=== PATIENT | female | born 1945 | race Caucasian/White ===

== ENCOUNTER 2019-07-11 08:56 | Emergency (ER) | payer MEDICARE ==
[~2019-07-11] VITALS: Ht 160 cm; Wt 50.3 kg
--- NOTE | 2019-07-11 09:41 | NUR ---
NAUSEA , LOWER ABD CRAMPING X 12 HOURS. SEEN AT FIRST (UA DIPSTICK +NITRITE) -INFLUENZA A/B PLACED ON NIBP/POX TO OBTAIN UA/PIV FROM WHICH I WILL DRAW LAB/ THEN IVF
[2019-07-11] MEDS ORDERED: CEFTRIAXONE PMX 1GM/50ML 50 ML IVPB ONE (10:00)
[2019-07-11] MEDS ORDERED: METOCLOPRAMIDE 5 MG/ML, 2ML IVPush ONE (10:00)
[2019-07-11] MEDS ORDERED: SODIUM CHLORIDE FLUSH 10ML SYR IVF ONE (10:00)
--- NOTE | 2019-07-11 10:00 | NUR ---
UA SENT/LABS SENT SANS BLOOD CULTURES
[2019-07-11] MEDS ORDERED: ATEN25TA PO (10:06)
[2019-07-11] MEDS ORDERED: ASPI81TA45 PO (10:06)
[2019-07-11] MEDS ORDERED: WARF-36 PO (10:06)
[2019-07-11] MEDS ORDERED: TAMS-11 PO (10:06)
[2019-07-11] MEDS ORDERED: WARF2.5T32 PO (10:06)
[2019-07-11] MEDS ORDERED: CLOP75TA52 PO (10:06)
[2019-07-11] MEDS ORDERED: PANT40TA5 PO (10:06)
[2019-07-11] MEDS ORDERED: DIAZ5TAB PO (10:06)
[2019-07-11] MEDS ORDERED: BUSP7.5T3 PO (10:06)
[2019-07-11] MEDS ORDERED: LOSA50TA14 PO (10:06)
[2019-07-11] MEDS ORDERED: SERT25TA3 PO (10:06)
[2019-07-11] MEDS ORDERED: AMLO-150 PO (10:06)
[2019-07-11] MEDS ORDERED: ONDANSETRON 2MG/ML, 2ML ONE ×2 (10:19→13:22)
--- NOTE | 2019-07-11 10:23 | NUR ---
AFTER DISCUSSION WITH PROVIDER. BLOOD CULTURES NOT DRAWN (AVOID ADDITIONAL PUNCTURE) UNLESS LACTATE/WBC ABNORMAL. THUS ROCEPHINE HELD MEDICATED WITH 1L NS AND NAUSEA MEDICINE PER EMAR MED RECC UPDATED
[2019-07-11 10:24] LABS: MEAN CORPUSCULAR HEMOGLOBIN 28.1 pg (27.0-34.8); MEAN CORPUSCULAR HGB CONC 32.4 g/dL (32.4-35.8); MEAN CORPUSCULAR VOLUME 86.8 fL (80-100); MEAN PLATELET VOLUME 8.4 fL (7.4-10.4); PLATELET COUNT 287 x10^3/uL (130-400); RED CELL DISTRIBUTION WIDTH 16.7 % (9.6-15.2)
[2019-07-11] MEDS ORDERED: SODIUM CHLORIDE 0.9% 1,000ML IVBOLUS ONE (10:30)
[2019-07-11] MEDS ORDERED: ONDANSETRON 2MG/ML, 2ML IVPush ONE ×2 (10:30→13:30)
[2019-07-11 10:32] LABS: ANION GAP 10 mmol/L (5-15); CALCIUM 9.2 mg/dL (8.5-10.1); CHLORIDE 92 mmol/L (98-107); CREATININE 0.88 mg/dL (0.55-1.02)
[2019-07-11 10:33] LABS: ALBUMIN 4.4 g/dL (3.4-5.0)
[2019-07-11 10:53] LABS: BASOPHILS # (AUTO) 0.01 x10^3/uL (0-0.1); BASOPHILS % (AUTO) 0 % (0-1); EOSINOPHILS # (AUTO) 0.01 x10^3/uL (0-0.4); EOSINOPHILS % (AUTO) 0 % (1-7); LYMPHOCYTES # (AUTO) 1.05 x10^3/uL (1-3.4); LYMPHOCYTES % (AUTO) 12 % (22-44); MD NO; MONOCYTES # (AUTO) 0.32 x10^3/uL (0.2-0.8); MONOCYTES % (AUTO) 4 % (2-9); NEUTROPHILS # (AUTO) 7.12 x10^3/uL (1.8-6.8); NEUTROPHILS % (AUTO) 84 % (42-75)
[2019-07-11] MEDS ORDERED: CEFTRIAXONE PMX 1GM/50ML 50 ML ONE (10:53)
--- NOTE | 2019-07-11 10:58 | NUR ---
NOTIFIED DR STERN WBC/LACTIC LEVEL NEG AND THAT PT WANTS TO GO HOME. CETRIAXONE HUNG PER SEP. VSS, CALL GENAO IN REACH. NAD.
[2019-07-11 11:10] LABS: MICROSCOPIC INDICATED
[2019-07-11 11:11] LABS: CULTURE INDICATED? YES
--- NOTE | 2019-07-11 11:24 | NUR ---
ivf/abx complete. Patient tolerating po fluids/solids Provider asked for dispo plan
--- NOTE | 2019-07-11 12:00 | NUR ---
nausea completely improved (0/10) vss
--- NOTE | 2019-07-11 12:18 | NUR ---
pt to ct
[2019-07-11] MEDS ORDERED: OMNIPAQUE 350 MG/ML, 100ML BOTTLE ONE (12:29)
--- NOTE | 2019-07-11 13:14 | NUR ---
All testing reviewed. Clarified poc with provider- to d/c shortly VSS on nibp/pox
[2019-07-11 13:30] VITALS: BP 105/56
== END 2019-07-11 13:52 | disposition home or self-care (01) ==
LOC: ED 13:01
DX: K57.32 Diverticulitis of large intestine without perforation or abscess without bleeding (principal); E87.1 Hypo-osmolality and hyponatremia
CPT/HCPCS: 36415; 74177; 80048; 81001; 82040; 83605; 85025; 87077; 87086; 87186; 96365; 96375; 96376; 99284; J0696; J2405; J7030; Q9967

== ENCOUNTER 2019-08-08 23:02 | Emergency (ER) | payer MEDICARE ==
[~2019-08-08] VITALS: Ht 160 cm; Wt 47.7 kg
[~2019-08-08 23:02] MED LIST changes: -OMNIPAQUE 350 MG/ML, 100ML BOTTLE ONE
[2019-08-08 23:03] VITALS: BP 154/79
[2019-08-08] MEDS ORDERED: LORazepam 1MG TABLET ONE (23:58)
[2019-08-09] MEDS ORDERED: LORazepam 1MG TABLET ONE (00:45)
[2019-08-09] MEDS ORDERED: LORazepam 1MG TABLET PO ONE ×2 (01:00)
== END 2019-08-09 00:52 | disposition home or self-care (01) ==
LOC: ED 08-09 00:46
DX: F51.02 Adjustment insomnia (principal); F41.1 Generalized anxiety disorder; I48.91 Unspecified atrial fibrillation
CPT/HCPCS: 99283

== ENCOUNTER → 2019-08-08 | Outpatient (CLI) | payer MEDICARE ==
[~2019-08-08] MED LIST: AMLO-150 PO; ASPI81TA45 PO; ATEN25TA PO; BUSP7.5T3 PO; CLOP75TA52 PO; DIAZ5TAB PO; LOSA50TA14 PO; OMNIPAQUE 350 MG/ML, 100ML BOTTLE ONE; PANT40TA5 PO; SERT25TA3 PO; TAMS-11 PO; WARF-36 PO; WARF2.5T32 PO
== END | disposition home or self-care (01) ==
LOC: CFH 08:37
PROVIDERS: ATTEND Family Medicine
DX: K76.0 Fatty (change of) liver, not elsewhere classified (principal); K57.30 Diverticulosis of large intestine without perforation or abscess without bleeding; N94.89 Other specified conditions associated with female genital organs and menstrual cycle; N28.1 Cyst of kidney, acquired
CPT/HCPCS: 74177; Q9967

== ENCOUNTER 2019-08-17 19:23 | Emergency (ER) | payer MEDICARE ==
[~2019-08-17] VITALS: Ht 160 cm; Wt 47.1 kg
[2019-08-17 20:10] LABS: ALBUMIN 3.8 g/dL (3.4-5.0); ANION GAP 7 mmol/L (5-15); CALCIUM 8.9 mg/dL (8.5-10.1); CHLORIDE 99 mmol/L (98-107); CREATININE 0.74 mg/dL (0.55-1.02)
[2019-08-17 20:17] LABS: MICROSCOPIC AUTO
[2019-08-17 20:19] LABS: CULTURE INDICATED? NO
[2019-08-17 20:21] LABS: MEAN CORPUSCULAR HGB CONC 32.3 g/dL (32.4-35.8); MEAN CORPUSCULAR VOLUME 83.6 fL (80-100); MEAN PLATELET VOLUME 8.4 fL (7.4-10.4); PLATELET COUNT 326 x10^3/uL (130-400); RED BLOOD COUNT 4.38 x10^6/uL (3.82-5.3); RED CELL DISTRIBUTION WIDTH 17.4 % (9.6-15.2)
[2019-08-17 20:29] LABS: MD YES
[2019-08-17 20:36] LABS: BASOS#(MANUAL) 0.07 x10^3/uL (0-0.1); BASOS% (MANUAL) 1 % (0-1); EOS% (MANUAL) 3 % (1-7); LYMPH#(MANUAL) 2.21 x10^3/uL (1-3.4); LYMPHS% (MANUAL) 34 % (22-44); MONOS#(MANUAL) 0.52 x10^3/uL (0.3-2.7); MONOS% (MANUAL) 8 % (2-9); SEG#(MANUAL) 3.51 x10^3/uL (1.8-6.8); SEGS% (MANUAL) 54 % (42-75)
[2019-08-17 20:37] LABS: ANISOCYTOSIS 1+; OVALOCYTES 1+
[2019-08-17 20:38] LABS: <PLATELET ESTIMATE> ADEQUATE; <PLT MORPHOLOGY> NORMAL PLT MORPH; HYPOCHROMIA 1+
[2019-08-17 21:30] VITALS: BP 114/61
== END 2019-08-17 21:35 | disposition home or self-care (01) ==
LOC: ED 21:19
DX: R33.9 Retention of urine, unspecified (principal); E87.1 Hypo-osmolality and hyponatremia; I48.91 Unspecified atrial fibrillation
CPT/HCPCS: 36415; 51702; 80048; 81001; 82040; 85025; 99283; 99284

== ENCOUNTER 2019-08-31 01:35 | Emergency (ER) | payer MEDICARE ==
[~2019-08-31] VITALS: Ht 160 cm; Wt 45.3 kg
--- NOTE | 2019-08-31 02:00 | NUR ---
FIRST CONTACT WITH PT. [facility]. PT REPORTS SUDDEN ONSET BURNING EPIGASTRIC PAIN "STARTING LAST NIGHT". +NAUSEA, DENIES VOMITING. DENIES CP/SOB. SEEN IN ED RECENTLY FOR URINARY RETENTION. DENIES URINARY S/S AT THIS TIME. BP/SPO2/ECG MONITORING IN PLACE. AFIB NOTED ON MONITOR, HR 70'S. HX OF SAME. SO AT BEDSIDE.
--- NOTE | 2019-08-31 02:03 | NUR ---
REPORT TO REX PICHARDO.
[2019-08-31] MEDS ORDERED: MORPHINE SULFATE 4 MG/ML, 1ML ONE (02:11)
[2019-08-31] MEDS ORDERED: ONDANSETRON 2MG/ML, 2ML ONE (02:11)
--- NOTE | 2019-08-31 02:21 | NUR ---
PATIENT MEDICATED PER EMAR, TOLERATED WELL. NEEDS ADDRESSED. CALL LIGHT IN REACH
[2019-08-31] MEDS ORDERED: SODIUM CHLORIDE FLUSH 10ML SYR IVF ONE (02:30)
[2019-08-31] MEDS ORDERED: ONDANSETRON 2MG/ML, 2ML IVPush ONE (02:30)
[2019-08-31] MEDS ORDERED: MORPHINE SULFATE 4 MG/ML, 1ML IVPush PRN (02:30)
[2019-08-31 02:50] LABS: ALANINE AMINOTRANSFERASE 20 U/L (12-78); ALBUMIN 3.5 g/dL (3.4-5.0); ANION GAP 8 mmol/L (5-15); CALCIUM 8.7 mg/dL (8.5-10.1); CHLORIDE 102 mmol/L (98-107); CREATININE 0.73 mg/dL (0.55-1.02)
[2019-08-31 02:54] LABS: ALKALINE PHOSPHATASE 82 U/L (45-117); BILIRUBIN,TOTAL 0.6 mg/dL (0.2-1.0); TOTAL PROTEIN 6.7 g/dL (6.4-8.2); TROPONIN I < 0.015 ng/mL (0.000-0.045)
[2019-08-31 03:18] LABS: BASOPHILS # (AUTO) 0.05 x10^3/uL (0-0.1); BASOPHILS % (AUTO) 1 % (0-1); EOSINOPHILS # (AUTO) 0.12 x10^3/uL (0-0.4); EOSINOPHILS % (AUTO) 3 % (1-7); LYMPHOCYTES # (AUTO) 1.41 x10^3/uL (1-3.4); LYMPHOCYTES % (AUTO) 30 % (22-44); MD SCAN; MEAN CORPUSCULAR HEMOGLOBIN 26.8 pg (27.0-34.8); MEAN CORPUSCULAR HGB CONC 32.3 g/dL (32.4-35.8); MEAN CORPUSCULAR VOLUME 83.2 fL (80-100); MEAN PLATELET VOLUME 7.3 fL (7.4-10.4); MONOCYTES % (AUTO) 9 % (2-9); NEUTROPHILS # (AUTO) 2.76 x10^3/uL (1.8-6.8); NEUTROPHILS % (AUTO) 58 % (42-75); PLATELET COUNT 354 x10^3/uL (130-400); RED BLOOD COUNT 4.34 x10^6/uL (3.82-5.3)
[2019-08-31] MEDS ORDERED: SODIUM CHLORIDE 0.9%, 500ML IVBOLUS ONE (03:30)
[2019-08-31] MEDS ORDERED: MAALOX/HYOSCYAMINE/LIDOCAINE 45 ML BTL PO ONE (03:30)
--- NOTE | 2019-08-31 03:39 | NUR ---
STRAIGHT CATH PERFORMED TO OBTAIN CLEAN CATCH UA. PATIENT TOLERATED WELL. UA WALKED TO LAB. IVF STARTED.
[2019-08-31] MEDS ORDERED: MAALOX/HYOSCYAMINE/LIDOCAINE 45 ML BTL ONE (03:41)
--- NOTE | 2019-08-31 03:44 | NUR ---
PATIENT MEDICATED PER EMAR, TOLERATED WELL.
[2019-08-31 04:00] LABS: MICROSCOPIC AUTO
[2019-08-31] MEDS ORDERED: OMNIPAQUE 350 MG/ML, 100ML BOTTLE ONE (04:01)
[2019-08-31 04:03] LABS: CULTURE INDICATED? NO
--- NOTE | 2019-08-31 04:18 | NUR ---
PATIENT DESAT TO 86% WHILE SLEEPING, PLACED ON 1.5L NC, UP TO 98%
--- NOTE | 2019-08-31 04:57 | NUR ---
PATIENT STATES SHE DOES NOT WANT O2 ON, PATIENT 96% ON RA AT THIS TIME
--- NOTE | 2019-08-31 05:15 | NUR ---
PATIENT STATES "BURNING SENSATION" IS RESOLVED AFTER GI COCKTAIL
--- NOTE | 2019-08-31 05:25 | NUR ---
PATIENT AMBULATE IN ROOM WITH STEADY GAIT, USING BEDSIDE COMMODE AT THIS TIME
[2019-08-31 05:35] VITALS: BP 114/63
== END 2019-08-31 05:56 | disposition home or self-care (01) ==
LOC: ED 02:56
DX: R10.13 Epigastric pain (principal); R11.0 Nausea; I10 Essential (primary) hypertension; I48.91 Unspecified atrial fibrillation; I25.2 Old myocardial infarction; Z90.89 Acquired absence of other organs; Z87.891 Personal history of nicotine dependence; Z98.61 Coronary angioplasty status
CPT/HCPCS: 36415; 71045; 74177; 80053; 81001; 83690; 84484; 85025; 93005; 96374; 96375; 99285; J2270; J2405; J7040; Q9967; 96361; 96365; 96366

== ENCOUNTER → 2019-11-09 | Outpatient (CLI) | payer MEDICARE | END | disposition home or self-care (01) | LOC: CVU 08:37 | PROVIDERS: ATTEND Internal Medicine Cardiovascular Disease | DX: I65.23 Occlusion and stenosis of bilateral carotid arteries (principal); I08.3 Combined rheumatic disorders of mitral, aortic and tricuspid valves; I25.10 Atherosclerotic heart disease of native coronary artery without angina pectoris; I10 Essential (primary) hypertension; I48.20 Chronic atrial fibrillation, unspecified | CPT/HCPCS: 93306; 93880 ==

== ENCOUNTER → 2019-11-30 | Outpatient (CLI) | payer MEDICARE ==
[~2019-11-30] MED LIST changes: +REGADENOSON 0.4 MG/5 ML SYRINGE ONE
== END | disposition home or self-care (01) ==
LOC: CFH 08:03
PROVIDERS: ATTEND Internal Medicine Cardiovascular Disease
DX: I25.10 Atherosclerotic heart disease of native coronary artery without angina pectoris (principal); I48.20 Chronic atrial fibrillation, unspecified; I65.22 Occlusion and stenosis of left carotid artery
CPT/HCPCS: 78452; 93017; A9502; J2785

== ENCOUNTER → 2020-11-27 | Outpatient (CLI) | payer MEDICARE ==
[~2020-11-27] MED LIST changes: -BUSP7.5T3 PO; +BUSP7.5T5 PO; -PANT40TA5 PO; +PANT40TA6 PO; -REGADENOSON 0.4 MG/5 ML SYRINGE ONE; +SERT-331 PO; -SERT25TA3 PO
== END | disposition home or self-care (01) ==
LOC: CVU 08:24
PROVIDERS: ATTEND Internal Medicine Cardiovascular Disease
DX: I08.3 Combined rheumatic disorders of mitral, aortic and tricuspid valves (principal); I65.23 Occlusion and stenosis of bilateral carotid arteries; I25.10 Atherosclerotic heart disease of native coronary artery without angina pectoris; I25.2 Old myocardial infarction; J44.9 Chronic obstructive pulmonary disease, unspecified; I48.20 Chronic atrial fibrillation, unspecified; I11.9 Hypertensive heart disease without heart failure
CPT/HCPCS: 93306; 93880